=== PATIENT | male | born 1995 | race Caucasian/White ===

== ENCOUNTER 2019-03-22 16:15 | Outpatient (RCR) | payer OTHER, BC, SELFPAY ==
--- NOTE | 2019-01-31 10:39 | PTOPEVAL ---
PHYSICAL THERAPY PLAN OF CARE UPDATE AND PROGRESS REPORT Thank you for referring this patient to [facility]. Dio will be scheduled for PT for 2x/week for 4 weeks. Please review, sign, date and return this plan of care PRASANTH. I agree with and certify that the following plan of care is medically necessary. Referring Physician Date Attending Provider: Raya Rhoades MD Re-evaluation Evaluation Information Problem Diagnosis right ACL reconstruction Onset 12/21/18 Subjective Information Dio is 6 weeks s/p right ACL Query Text:As Reported By Patient/ reconstruction. He has no Family pain reported at this time. He recognizes that the leg is still weak, but overall feels good. Pain Assessment Self Report Pain Level 0 Knee Range of Motion Right Knee Flexion Range of Motion - Active 130 Knee Extension Range of Motion - Active -1 Hip Strength Right Hip Flexion Strength 5 Normal Hip Extension Strength 4+ Good + Hip Abduction Strength 4+ Good + Knee Strength Right Knee Flexion Strength 4+ Good + Knee Extension Strength 4 Good Muscle Length Testing Left Hamstring Length -40 Right Hamstring Length -40 Extremity Circumference Assessment Circumference Assessment Right Knee Site Descriptor ([place]) suprapatellar Circumference (cm) 39 Circumference Comments left = 38.5cm Trendelenburg Gait Gait Pattern Observed Trunk Lateral Lean - Right Other Gait Observations very mild Trendelenburg to the right when right LE in stance phase Clinical Summary Dio is a 23 yo male 6 weeks s/p right ACL reconstruction. He is progressing very well through protocol. He ambulates without assistive device with only mild gait deviation. He performs strong quadriceps contraction and is able to control quadriceps during straight leg raise. We are working on right LE closed chain exercises with gradually increased resistance. He would benefit from further skilled PT to progress the rest of the way through protocol and to promote
--- NOTE | 2019-02-07 08:18 | PCPTNOTE ---
Patient called & cancelled scheduled appointment this date unable to make it.
--- NOTE | 2019-03-22 17:03 | PTOPEVAL ---
Addendum entered by Bhavana Norman, PT 03/27/19 10:05: Patient will not be discharged per physician request. He will continue with therapy 0-1x/week for 6 weeks. Original Note: PHYSICAL THERAPY PLAN OF CARE UPDATE AND PROGRESS REPORT/ DISCHARGE REPORT Thank you for referring this patient to [facility]. I recommend discharge from skilled PT at this time with progression to regular exercise routine. Patient is understanding and agreeable. Please review, sign, date and return this plan of care PRASANHT. I agree with and certify that the following plan of care is medically necessary. Referring Physician Date Admitting Provider: Attending Provider: Raya Rhoades MD Referring Provider: *PT Outpatient Evaluation Start: 01/08/19 14:49 Freq: Status: Active Protocol: Document 03/22/19 16:56 [facility] (Rec: 03/22/19 17:03 [facility] [id number]) Therapy Assessment Status Assessment Status Assessment Status Re-evaluation Evaluation Information Problem Diagnosis right ACL reconstruction Onset 12/21/18 Subjective Information Dio is 14 weeks s/p right Query Text:As Reported By Patient/ ACL reconstruction. He has no Family pain reported at this time. He returned to work on light duty 2 weeks ago and only noted that the right leg would fatigue during work. Self Report Self Report Pain Level 0 Pain Score Pain Score 0: Self Report Knee Range of Motion Right Knee Flexion Range of Motion - Active 130 Knee Extension Range of Motion - Active 0 Query Text: Hip Strength Right Hip Flexion Strength 5 Normal Hip Extension Strength 4+ Good + Hip Abduction Strength 5 Normal Knee Strength Right Knee Flexion Strength 5 Normal Knee Extension Strength 5 Normal Clinical Summary Dio a 23 yo male 14 weeks s/p right ACL reconstruction. He is progressing very well through protocol. He has normal gait pattern and running pattern. All jumping activities, single or double leg, are performed with appropriate femoral posturing and there is no apparent instability. Able to perform 1 minute wall side, squat jumps to 18 height [id number] x2 without fatigue of LE; Able to perform functional squat with appropriate posturing. The right quadriceps, while measuring 5/5 strength to MMT, continues to be atrophied with less muscle bulking compared to the left. Dio was educated on the deficit and was educated on how to continue to make progress toward improving muscle size. He is competent and capable in full understanding of exercises and appropriate form. At this time, I do recommend discharge from skilled PT to progress to a regular exercise routine with focus of increasing right quadriceps muscle bulking. PT Services Indicated No Patient/Caregiver Informed of Benefits/ Yes Risks of Rehabilitation Patient/Caregiver Participated in Plan Yes of Care
--- NOTE | 2019-04-10 15:15 | PCPTNOTE ---
This treatment is being continued on visit number [id number]. Please see documentation on both accounts to view progress. Completed interventions, outcomes, and problems have been marked as Inactive to facilitate the copying of the Care plan routine for recurring accounts.
== END 2019-03-22 23:59 | disposition home or self-care (01) ==
LOC: ANHPT 16:15
PROVIDERS: PCP Family Medicine; Visit Provider Family Medicine
DX: S83.511D Sprain of anterior cruciate ligament of right knee, subsequent encounter (principal)
CPT/HCPCS: 97110; 97112

== ENCOUNTER 2019-04-25 17:00 | Outpatient (RCR) | payer BC, SELFPAY ==
--- NOTE | 2019-04-10 15:14 | PCPTNOTE ---
The treatment documented on this account is a continuation of the treatment documented on visit number [id number]. Please see documentation on both accounts to view progress. The Plan of Care has been transitioned and updated within the new V#. I have addressed and agree with the discipline specific Problems, Interventions, and Goals for the current certification period. Completed interventions, outcomes, and problems have been marked as Inactive to facilitate the copying of the Care plan routine for recurring accounts.
--- NOTE | 2019-04-11 14:58 | PCPTNOTE ---
Patient called & cancelled scheduled appointment this date due to conflicting events. Something came up
--- NOTE | 2019-04-16 12:46 | PCPTNOTE ---
To Whom it May Concern: Dio Musa (1995) has been participating in physical therapy for rehabilitation following right ACL reconstructive surgery. At this time he has no restrictions or limitations to activity. He is released to safely perform all tasks required of him in community, home, and work. Thank you, Bhavana Gregorio, PT, DPT
--- NOTE | 2019-05-07 16:00 | PCPTNOTE ---
PHYSICAL THERAPY DISCHARGE REPORT Patient:Dio Musa Date of :1995 Dio Musa has participated in physical therapy for 12 weeks s/p right ACL reconstruction. 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 I recommend complete discharge from PT at this time. His goals for his plan of care have been achieved. Thank you for referring this patient to [facility]. Please review, sign, date and return this discharge summary PRASANTH. I have been updated about the patient's current status and I agree with discharge from the above service at this time. Referring Physician Date
== END 2019-05-08 08:27 | disposition home or self-care (01) ==
LOC: ANHPT 17:00
PROVIDERS: PCP Family Medicine
DX: S83.511D Sprain of anterior cruciate ligament of right knee, subsequent encounter (principal)
CPT/HCPCS: 99199; 97110; 97140

== ENCOUNTER 2020-08-19 16:24 | Emergency (ER) | payer OTHER, SELFPAY ==
--- NOTE | 2020-08-19 16:35 | ED.ABDPAIN ---
HPI - Abdominal Pain General Chief Complaint: Abdominal Pain Stated Complaint: Abdominal pain,headache,nausea Time Seen by Provider: 08/19/20 16:41 Source: patient and RN notes reviewed Mode of arrival: ambulatory Limitations: no limitations History of Present Illness HPI narrative: 24 year old male presents with concern for diarrhea, nausea, abdominal pain yesterday. He denies current abdominal pain. Reports symptoms started with nausea without vomiting while he was overheated at work. Reports he went home and had 3 diarrhea stools, epigastric abdominal pain, nausea, no vomiting. He denies fevers, reports chills. Reports waking up with sweats today. He reports 2 diarrhea stools today. Denies taking any medications for his symptoms. Denies any known sick contacts. MD elicited complaint: abdominal pain Related Data Allergies Allergy/AdvReac Type Severity Reaction Status Date / Time pseudoephedrine Allergy Mild Hives / Verified 10/03/19 16:12 Red Face chlorpheniramine Allergy Unknown Unknown Verified 10/03/19 16:12 [Ed A-Hist DM] dextromethorphan Allergy Unknown Unknown Verified 10/03/19 16:12 [Ed A-Hist DM] phenylephrine [Ed A-Hist DM] Allergy Unknown Unknown Verified 10/03/19 16:12 triprolidine [Aprodine] Allergy Unknown Unknown Verified 10/03/19 16:12 Review of Systems Review of Systems: Narrative: CONSTITUTIONAL: Denies malaise, chills, sweats, or fever. ENT: Denies rhinorrhea, congestion, sinus pain, otalgia or sore throat. CARDIOVASCULAR: Denies chest pain, palpitations, or edema. RESPIRATORY: Denies cough or dyspnea. GASTROINTESTINAL: Denies abdominal pain yesterday, denies current abdominal pain. Reports nausea, diarrhea. Denies vomiting, bloody, or mucous stools. GENITOURINARY: Denies dysuria or hematuria. MUSCULOSKELETAL: Denies myalgia. NEUROLOGIC: Reports headache. All systems reviewed & are unremarkable except as noted in HPI and below PMFSH Social History Social History Smoking status: Never smoker Gender identity (if verbalized by the patient): Male Comments At time of signature, agree with nursing past medical, surgical, social and family history. There is no relevant family history pertinent to the presenting complaint Exam Narrative: Exam Narrative: GENERAL: Well-appearing, well-nourished, and in no acute distress. HEAD: Normocephalic, atraumatic. EYES: PERRLA, conjunctivae clear, and EOMI. ENT: Nares clear, turbinates pink, no rhinorrhea or epistaxis. Mucous membranes moist. Oropharynx without edema, erythema, or lesions. Tonsils not enlarged and without exudate. NECK: Supple. No lymphadenopathy CHEST: Speaks in full sentences. No respiratory distress. HEART: Regular rate and rhythm. ABDOMEN: Soft, flat, nondistended. No guarding, rebound tenderness, or rigid. No pulsatilla masses. Bowel sounds present in all four quadrants. No organomegaly. Negative Roblero?s sign. No periumbilical tenderness. No Supra public tenderness or distension. Good femoral pulses bilaterally. No hernia noted. No scars or surface trauma. SKIN: Warm, dry, no rash. NEURO: Alert and oriented x3. PSYCH: Normal mood and affect Course Course Emergency Course: Patient is aware of diagnosis, understands and agrees to treatment plan. Anticipatory guidance given. Patient agrees to follow-up as directed and is aware of reasons to seek care at the emergency department. Portions of this record may have been created with voice recognition software Vital Signs Vital signs: Vital Signs Temperature 97.2 F L 08/19/20 16:42 Pulse Rate 51 L 08/19/20 16:42 Respiratory Rate 16 08/19/20 16:42 Blood Pressure 127/68 08/19/20 16:42 Pulse Oximetry 100 08/19/20 16:42 Temperature 97.2 F L 08/19/20 16:42 Pulse Rate 51 L 08/19/20 16:42 Respiratory Rate 16 08/19/20 16:42 Blood Pressure 127/68 08/19/20 16:42 Pulse Oximetry 100 08/19/20 16:42
[2020-08-19 16:42] VITALS: BP 127/68; PULSE 51; RESP 16; TEMP 36.2; O2SAT 100
== END 2020-08-19 16:53 | disposition home or self-care (01) ==
PROVIDERS: Emergency Provider Nurse Practitioner
DX: R19.7 Diarrhea, unspecified (principal)
CPT/HCPCS: 99213; G0463

== ENCOUNTER 2020-10-22 16:10 | Emergency (ER) | payer OTHER, SELFPAY ==
[2020-10-22 16:20] VITALS: BP 130/75; PULSE 78; RESP 16; TEMP 36.7; O2SAT 100
--- NOTE | 2020-10-22 16:26 | ED.URI ---
HPI - URI/Sore Throat General Chief Complaint: Upper Respiratory Infection Stated Complaint: sore throat Source: patient and RN notes reviewed Mode of arrival: ambulatory History of Present Illness HPI Narrative: This is a 24-year-old male for that presented to urgent care with complaints of congestion, fever, chills, sore throat and dry cough since Tuesday. According to patient he took [id number] Tylenol for his temperature. Patient is requesting Covid test which was negative and a strep test was also negative. The patient denies SOB, CP, palpitation, extremity numbness, lightheadedness, dizziness, constipation, and diarrhea. MD elicited complaint: fever, cough, sore throat and nasal congestion Related Data Allergies Allergy/AdvReac Type Severity Reaction Status Date / Time chlorpheniramine Allergy Mild Hives Verified 10/22/20 16:17 [Ed A-Hist DM] dextromethorphan Allergy Mild Hives Verified 10/22/20 16:17 [Ed A-Hist DM] phenylephrine [Ed A-Hist DM] Allergy Mild Hives Verified 10/22/20 16:17 pseudoephedrine Allergy Mild Hives / Verified 10/22/20 16:17 Red Face triprolidine [Aprodine] Allergy Mild Hives Verified 10/22/20 16:17 Review of Systems Review of Systems: A 14 organ system Review of Systems was performed and pertinent positives included in the HPI, otherwise remaining ROS is negative. [facility] Family History Family History (Updated 10/22/20 @ 16:26 by DEDE RiggsC) Other Family history non-contributory Social History Social History Smoking status: Never smoker Gender identity (if verbalized by the patient): Male Exam Narrative: GENERAL: This is a well-nourished, well-developed patient, in no apparent distress. HEAD: normocephalic, atraumatic. EYES: PERRL. Sclera clear/white. Vision is grossly intact. EARS: External ears normal, auditory canals clear and without drainage, TMs normal without perforation. Hearing grossly intact. NOSE: External nose normal with no obvious nasal discharge, nares without redness, no rhinorrhea. THROAT: Mucous membranes moist, posterior pharynx edematous with edema NECK: Neck supple, non-tender without lymphadenopathy, masses or thyromegaly. CARDIOVASCULAR: Regular rate and rhythm without murmurs, gallops, or rubs. RESPIRATORY: Clear to auscultation. Breath sounds equal bilaterally. No wheezes, rales, or rhonchi. GASTROINTESTINAL: Abdomen soft, non-tender, nondistended. Bowel sounds are active. No hepato-splenomegaly, or palpable masses. No guarding. SKIN: warm, intact with no suspicious lesions or rash, good texture and turgor. NEURO: awake, alert, and oriented to person, place and time. There were no obvious focal neurologic abnormalities. Steady gait EXTREMITIES: Normal range of motion. No edema. No calf tenderness. Negative Homans sign bilaterally. BACK: Nontender without deformity or crepitance. No flank tenderness. Course Vital Signs Vital signs: Vital Signs Temperature 98.0 F 10/22/20 16:20 Pulse Rate 78 10/22/20 16:20 Respiratory Rate 16 10/22/20 16:20 Blood Pressure 130/75 10/22/20 16:20 Pulse Oximetry 100 10/22/20 16:20 Temperature 98.0 F 10/22/20 16:20 Pulse Rate 78 10/22/20 16:20 Respiratory Rate 16 10/22/20 16:20 Blood Pressure 130/75 10/22/20 16:20 Pulse Oximetry 100 10/22/20 16:20 MDM - URI/Sore Throat MDM Narrative Medical decision making narrative: Patient will discharge home with a Z-Madhu Tessalon Perles and Mucomyst Differential Diagnosis Differential diagnosis: Likely upper respiratory infection, sinusitis, viral infection and pharyngitis Lab Data Attestation: I reviewed the patient's lab results. Labs: Lab Results 10/22/20 Range/Units 16:20 POC SARS CoV-2 Ag Negative (Negative) Strep Screen Presumptive Negative *(Reference Range: Negative)* Discharge Plan
[2020-10-23 17:13] LABS: SARS-CoV-2 RNA PCR Negative
== END 2020-10-22 16:43 | disposition home or self-care (01) ==
PROVIDERS: Emergency Provider Nurse Practitioner; PCP Family Medicine
DX: J02.9 Acute pharyngitis, unspecified (principal); Z20.822 Contact with and (suspected) exposure to COVID-19
CPT/HCPCS: 87081; 87426; 87880; 99213; C9803; G0463; U0003; U0005

== ENCOUNTER 2022-02-16 15:26 | Emergency (ER) | payer OTHER, SELFPAY ==
[2022-02-16 15:30] VITALS: BP 143/80; PULSE 82; RESP 16; TEMP 36.7; O2SAT 99
--- NOTE | 2022-02-16 15:32 | ED.URI ---
HPI - URI/Sore Throat General Chief Complaint: Upper Respiratory Infection Stated Complaint: CONGESTION/HEADACHE/NAUSEA/CHILLS Time Seen by Provider: 02/16/22 15:32 Source: patient and RN notes reviewed History of Present Illness HPI Narrative: Patient is a 26-year-old male who presents to urgent care with complaints of congestion, headache, nausea, chills and fatigue. Patient states that started late on Tuesday. Patient denies any known ill exposures. States that he has been taking [place]. No other acute complaints. No acute distress noted. Patient aware of the plan of care. Some parts of this dictation were generated by voice recognition software and may contain typographical and/or grammatical inaccuracies. Related Data Allergies Allergy/AdvReac Type Severity Reaction Status Date / Time chlorpheniramine Allergy Mild Hives Verified 02/16/22 15:35 [Ed A-Hist DM] dextromethorphan Allergy Mild Hives Verified 02/16/22 15:35 [Ed A-Hist DM] phenylephrine [Ed A-Hist DM] Allergy Mild Hives Verified 02/16/22 15:35 pseudoephedrine Allergy Mild Hives / Verified 02/16/22 15:35 Red Face triprolidine [Aprodine] Allergy Mild Hives Verified 02/16/22 15:35 Review of Systems Review of Systems: CONSTITUTIONAL: Reports of chills EYES: Denies visual changes, redness, or discharge. ENT: Denies rhinorrhea, congestion, sore throat, or otalgia. CARDIOVASCULAR: Denies chest pain, palpitations, or edema. RESPIRATORY: Denies cough or dyspnea. GASTROINTESTINAL: Reports of nausea without vomiting or abdominal pain GENITOURINARY: Denies dysuria or hematuria. SKIN: Denies rash or itching. MUSCULOSKELETAL: Denies back pain, joint pain. reports of body aches NEUROLOGIC: Reports of headache All other systems reviewed are negative, except as documented in HPI. [facility] Family History Family History (Updated 10/22/20 @ 16:26 by JANET Riggs) Other Family history non-contributory Social History Social History Smoking status: Never smoker Gender identity (if verbalized by the patient): Male Comments At the time of my signature, I reviewed and agree with the nursing past medical, surgical, social, and family history. There is no relevant family history pertinent to the patient complaint. Exam Narrative: GENERAL: This is a well-nourished, well-developed patient, in no apparent distress. HEAD: normocephalic, atraumatic. EYES: PERRL. Sclera clear/white. Vision is grossly intact. EARS: External ears normal, auditory canals clear and without drainage, TMs normal without perforation. Hearing grossly intact. NOSE: External nose normal with no obvious nasal discharge, nares without redness, clear to yellow rhinorrhea. THROAT: Mucous membranes moist, mild erythema to posterior pharynx with moderate postnasal drainage NECK: Neck supple, non-tender without lymphadenopathy CARDIOVASCULAR: Regular rate and rhythm without murmurs, gallops, or rubs. RESPIRATORY: Clear to auscultation. Breath sounds equal bilaterally. No wheezes, rales, or rhonchi. GASTROINTESTINAL: Abdomen soft, non-tender, nondistended. SKIN: warm, intact with no suspicious lesions or rash, good texture and turgor. NEURO: awake, alert, and oriented to person, place and time. There were no obvious focal neurologic abnormalities. EXTREMITIES: No clubbing, cyanosis, or edema. Course Course Level of Care: Express Care Visit Vital Signs Vital signs: Vital Signs Temperature 98.1 F 02/16/22 15:30 Pulse Rate 82 02/16/22 15:30 Respiratory Rate 16 02/16/22 15:30 Blood Pressure 143/80 H 02/16/22 15:30 Pulse Oximetry 99 02/16/22 15:30 Oxygen Delivery Room Air 02/16/22 15:30 Temperature 98.1 F 02/16/22 15:30 Pulse Rate 82 02/16/22 15:30 Respiratory Rate 16 02/16/22 15:30 Blood Pressure 143/80 H 02/16/22 15:30 Pulse Oximetry 99 02/16/22 15:30 Oxygen Delivery Room Air 02/16
== END 2022-02-16 16:00 | disposition home or self-care (01) ==
PROVIDERS: Emergency Provider Nurse Practitioner Family
DX: J06.9 Acute upper respiratory infection, unspecified (principal)
CPT/HCPCS: 87804; 99213; G0463

== ENCOUNTER 2023-01-07 16:02 | Emergency (ER) | payer OTHER, SELFPAY ==
[2023-01-07 16:14] VITALS: BP 149/80; PULSE 82; RESP 16; TEMP 36.9; O2SAT 100
--- NOTE | 2023-01-07 17:00 | ED.EYEPROB ---
HPI - Eye Problem General Chief complaint: Eye Problems Stated complaint: Eye pain Source: patient Mode of arrival: ambulatory Limitations: no limitations History of Present Illness HPI Narrative: 27-year-old male presented for complaint of right eye irritation over the past 2 days. States that the onset he thought he saw a black speck in the right eye. He irrigated the eye with saline last night. Continued to feel like something was in the lower part of the eye. Denies significant pain, discharge, itching, vision changes, or photophobia. MD chief complaint: eye pain Related Data Allergies Allergy/AdvReac Type Severity Reaction Status Date / Time chlorpheniramine Allergy Mild Hives Verified 01/07/23 16:09 [Ed A-Hist DM] dextromethorphan Allergy Mild Hives Verified 01/07/23 16:09 [Ed A-Hist DM] phenylephrine [Ed A-Hist DM] Allergy Mild Hives Verified 01/07/23 16:09 pseudoephedrine Allergy Mild Hives / Verified 01/07/23 16:09 Red Face triprolidine [Aprodine] Allergy Mild Hives Verified 01/07/23 16:09 Review of Systems Review of Systems: CONSTITUTIONAL: Denies body aches, fever, chills EYES:Endorses redness and pain to right eye; FB sensation, denies photophobia or visual changes ENT: Denies rhinorrhea, congestion, sore throat, or otalgia. CARDIOVASCULAR: Denies chest pain, palpitations RESPIRATORY: Denies cough or dyspnea. GASTROINTESTINAL: Denies abdominal pain, nausea, vomiting, or diarrhea. SKIN: Denies rash, itching, or wounds. MUSCULOSKELETAL: Denies back pain, joint pain, or myalgia. NEUROLOGIC: Denies headache, numbness, tingling, or weakness. All systems reviewed & are unremarkable except as noted in HPI and below PMFSH Past Medical History Medical History (Updated 01/07/23 @ 17:17 by Traci Mccullough APRN) No pertinent past medical history Family History Family History Other Family history non-contributory Social History Social History Smoking status: Never smoker Gender identity (if verbalized by the patient): Male Comments At time of signature, I have reviewed and agree with nursing past medical, surgical, social and family history unless otherwise noted. Please see nursing chart for further information. There is no relevant family history pertinent to the presenting complaint Exam Narrative: GENERAL: Well-appearing HEAD: Normocephalic, atraumatic. EYES: mild right conjunctival injection, no drainage or eye lid swelling. PERRLA, EOMI. Lid eversion shows no FB. No corneal abrasion on Young lamp exam. ENT: Mucous membranes pink and moist. No rhinorrhea. TMs normal bilaterally. Throat normal. Uvula midline. CHEST: Clear to auscultation. HEART: Regular rate and rhythm. ABDOMEN: Soft, nontender, nondistended SKIN: Warm, dry, no rash. Normal skin turgor. NEURO: No focal deficits. Alert and oriented x3 PSYCH: Normal affect. Course Course Emergency Course: Patient is aware of diagnosis, understands and agrees to treatment plan. Anticipatory guidance given. Patient agrees to follow-up as directed and is aware of reasons to seek care at the emergency department. Portions of this record may have been created with voice recognition software Level of Care: Express Care Visit Vital Signs Vital signs: Vital Signs Temperature 98.5 F 01/07/23 16:14 Pulse Rate 82 01/07/23 16:14 Respiratory Rate 16 01/07/23 16:14 Blood Pressure 149/80 H 01/07/23 16:14 Pulse Oximetry 100 01/07/23 16:14 Temperature 98.5 F 01/07/23 16:14 Pulse Rate 82 01/07/23 16:14 Respiratory Rate 16 01/07/23 16:14 Blood Pressure 149/80 H 01/07/23 16:14 Pulse Oximetry 100 01/07/23 16:14 Procedures FB Removal Eye Foreign Body #1: Foreign Body Removal Date: 01/07/23 Location: eye (R) Topical anesthetic used: tetracaine
== END 2023-01-07 17:17 | disposition home or self-care (01) ==
PROVIDERS: Emergency Provider Nurse Practitioner Family; PCP Family Medicine
DX: H57.11 Ocular pain, right eye (principal)
CPT/HCPCS: 99213; A9270; G0463

== ENCOUNTER 2023-04-06 13:38 | Emergency (ER) | payer OTHER, SELFPAY ==
--- NOTE | 2023-04-06 13:48 | ED.URI ---
HPI - URI/Sore Throat General Chief Complaint: Upper Respiratory Infection Stated Complaint: SORE THROAT/FEVER/CHILLS/COUGH Time Seen by Provider: 04/06/23 13:48 Source: patient Mode of arrival: ambulatory Limitations: no limitations History of Present Illness HPI Narrative: 27-year-old male presents with complaint nasal congestion, cough, sore throat for 3 days. Last known fever last night. Taking [id number] medications to treat symptoms. Reports throat very painful. All systems reviewed and negative except as noted above. Related Data Allergies Allergy/AdvReac Type Severity Reaction Status Date / Time chlorpheniramine Allergy Mild Hives Verified 04/06/23 13:46 [Ed A-Hist DM] dextromethorphan Allergy Mild Hives Verified 04/06/23 13:46 [Ed A-Hist DM] phenylephrine [Ed A-Hist DM] Allergy Mild Hives Verified 04/06/23 13:46 pseudoephedrine Allergy Mild Hives / Verified 04/06/23 13:46 Red Face triprolidine [Aprodine] Allergy Mild Hives Verified 04/06/23 13:46 Review of Systems Review of Systems: CONSTITUTIONAL: Reports fever, chills, or sweats. EYES: Denies visual changes, redness, or discharge. ENT: Reports rhinorrhea, congestion, sore throat. Denies otalgia. CARDIOVASCULAR: Denies chest pain, palpitations, or edema. RESPIRATORY: Reports cough. Denies dyspnea. GASTROINTESTINAL: Denies abdominal pain, nausea, vomiting, or diarrhea. GENITOURINARY: Denies dysuria or hematuria. SKIN: Denies rash or itching. MUSCULOSKELETAL: Denies back pain, joint pain, or myalgia. NEUROLOGIC: Denies headache, numbness, or weakness. PSYCHIATRIC: Denies anxiety or depression. All other systems reviewed are negative, except as documented in HPI. COUNTS INCLUDE 234 BEDS AT THE [facility] Past Medical History Medical History (Updated 04/06/23 @ 14:08 by Licha Abel NP) No pertinent past medical history Family History Family History Other Family history non-contributory Social History Social History Smoking status: Never smoker Gender identity (if verbalized by the patient): Male Comments At time of signature, agree with nursing past medical, surgical, social and family history. There is no relevant family history pertinent to the presenting complaint. Exam Narrative: GENERAL: This is a well-nourished, well-developed patient, in no apparent distress. HEAD: normocephalic, atraumatic. EYES: PERRL. Sclera clear/white. Vision is grossly intact. EARS: External ears normal, auditory canals clear and without drainage, TMs normal without perforation. Hearing grossly intact. NOSE: External nose normal clear nasal drainage, moderate nasal congestion. THROAT: Mucous membranes moist, erythema, exudates, tonsils 1+ bilaterally. NECK: Neck supple, non-tender without lymphadenopathy, masses or thyromegaly. CARDIOVASCULAR: Regular rate and rhythm without murmurs, gallops, or rubs. RESPIRATORY: Clear to auscultation. Breath sounds equal bilaterally. No wheezes, rales, or rhonchi. SKIN: warm, Dry, intact with no suspicious lesions or rash, good texture and turgor. NEURO: awake, alert, and oriented to person, place and time. There were no obvious focal neurologic abnormalities. EXTREMITIES: No joint tenderness, effusion, or edema noted. Course Course Level of Care: Express Care Visit Vital Signs Vital signs: Reviewed MDM - URI/Sore Throat MDM Narrative Medical decision making narrative: Negative COVID, influenza and strep. Will treat patient with antibiotics due to exam findings. Patient is aware of diagnosis, understands and agrees to treatment plan. Anticipatory guidance given. Patient agrees to follow-up as directed and is aware of reasons to seek care at the emergency department. Portions of this record may have been created with voice recognition software Differential Diagnosis Differential diagnosis: Likely pharyn
[2023-04-06 13:52] VITALS: BP 124/79; PULSE 104; RESP 16; TEMP 37.3; O2SAT 100
[2023-04-06 13:59] VITALS: BP 124/79; PULSE 104; RESP 16; TEMP 37.3; O2SAT 100
== END 2023-04-06 14:12 | disposition home or self-care (01) ==
PROVIDERS: Emergency Provider Nurse Practitioner Family; PCP Family Medicine
DX: J02.8 Acute pharyngitis due to other specified organisms (principal); Z20.822 Contact with and (suspected) exposure to COVID-19
CPT/HCPCS: 87081; 87426; 87804; 87880; 99213; G0463

== ENCOUNTER 2023-07-06 08:51 | Emergency (ER) | payer OTHER, SELFPAY ==
[2023-07-06 08:55] VITALS: BP 141/81; PULSE 89; RESP 16; TEMP 36.2; O2SAT 100
--- NOTE | 2023-07-06 09:30 | ED.SKABFB ---
HPI - Skin/Abscess/Foreign Bdy General Chief complaint: Skin/Abscess/Foreign Body Stated complaint: TICK BITE Time Seen by Provider: 07/06/23 09:23 Source: patient and RN notes reviewed Mode of arrival: ambulatory Limitations: no limitations History of Present Illness HPI narrative: Patient presents today with a possible tick bite to his right hand. States he has a bull's-eye rash and is concerned for Lyme disease. He was in the [place] yesterday and 3 days prior. The he did not see a tick on his hand. He did not remove a tick from his hand. He denies any symptoms to include fever, sweats or chills, body aches, abdominal pain, nausea vomiting. Related Data Home Medications Medication Instructions Recorded Confirmed No Home Medications 04/20/23 07/06/23 Allergies Allergy/AdvReac Type Severity Reaction Status Date / Time chlorpheniramine Allergy Mild Hives Verified 07/06/23 09:09 [Ed A-Hist DM] dextromethorphan Allergy Mild Hives Verified 07/06/23 09:09 [Ed A-Hist DM] phenylephrine [Ed A-Hist DM] Allergy Mild Hives Verified 07/06/23 09:09 pseudoephedrine Allergy Mild Hives / Verified 07/06/23 09:09 Red Face triprolidine [Aprodine] Allergy Mild Hives Verified 07/06/23 09:09 Review of Systems Review of Systems: CONSTITUTIONAL: Denies body aches, fever, chills, or sweats. EYES: Denies visual changes, redness, or discharge. ENT: Denies rhinorrhea, congestion, sore throat, or otalgia. CARDIOVASCULAR: Denies chest pain, palpitations, or edema. RESPIRATORY: Denies cough or dyspnea. GASTROINTESTINAL: Denies abdominal pain, nausea, vomiting, or diarrhea. GENITOURINARY: Denies dysuria or hematuria. SKIN: Denies rash, itching, or wounds.+ insect bite to right hand MUSCULOSKELETAL: Denies back pain, joint pain, or myalgia. NEUROLOGIC: Denies headache, numbness, tingling, or weakness. PSYCH: Denies depression or anxiety. [facility] Past Medical History Medical History No pertinent past medical history Family History Family History Other Family history non-contributory Social History Social History Smoking status: Never smoker Gender identity (if verbalized by the patient): Male Comments At time of signature, I have reviewed and agree with nursing past medical, surgical, social and family history unless otherwise noted. Please see nursing chart for further information. There is no relevant family history pertinent to the presenting complaint Exam Narrative: GENERAL: Well-appearing, well-nourished, and in no acute distress. HEAD: Normocephalic, atraumatic. EYES: EOMI. No redness or drainage. Conjunctivae normal. ENT: Mucous membranes pink and moist. NECK: Normal AROM. CHEST: No respiratory distress. EXTREMITIES: Right hand: Small insect bite, approximately 4 mm round, erythematous, and slightly raised. There is a small erythematous ring around this lesion. No necrotic center. Nontender. No induration or fluctuance noted. SKIN: Warm, dry, no rash. Capillary refill normal. Normal skin turgor. NEURO: No focal deficits. Alert and oriented x3. Gait steady. PSYCH: Normal affect. No signs of depression or anxiety. Course Course Level of Care: Express Care Visit Vital Signs Vital signs: Vital Signs Temperature 97.2 F L 07/06/23 08:55 Pulse Rate 89 07/06/23 08:55 Respiratory Rate 16 07/06/23 08:55 Blood Pressure 141/81 H 07/06/23 08:55 Pulse Oximetry 100 07/06/23 08:55 Temperature 97.2 F L 07/06/23 08:55 Pulse Rate 89 07/06/23 08:55 Respiratory Rate 16 07/06/23 08:55 Blood Pressure 141/81 H 07/06/23 08:55 Pulse Oximetry 100 07/06/23 08:55 Reviewed MDM - Skin/Abscess/Foreign Bdy MDM Narrative Medical decision making narrative: As patient did not see a tick
== END 2023-07-06 09:40 | disposition home or self-care (01) ==
PROVIDERS: Emergency Provider Nurse Practitioner
DX: S60.561A Insect bite (nonvenomous) of right hand, initial encounter (principal); W57.XXXA Bitten or stung by nonvenomous insect and other nonvenomous arthropods, initial encounter
CPT/HCPCS: 99211; G0463

== ENCOUNTER 2024-03-01 12:38 | Emergency (ER) | payer OTHER, SELFPAY ==
--- NOTE | 2024-03-01 13:06 | ED_ITS ---
HPI - URI/Sore Throat General Chief Complaint: Nausea/Vomiting/Diarrhea Stated Complaint: Flu Symptoms Time Seen by Provider: 03/01/24 13:30 Source: patient Mode of arrival: ambulatory Limitations: no limitations History of Present Illness HPI Narrative: Dio is a 28-year-old male patient presenting to the clinic today with flu-like symptoms. He reports he has been feeling feverish, chills, body aches, nausea, and diarrhea for the past 2 days. Has felt feverish but has not checked his temperature. Denies any chest pain or shortness of breath. Really denies any URI symptoms Related Data Allergies Allergy/AdvReac Type Severity Reaction Status Date / Time chlorpheniramine (Ed A-Hist Allergy Mild Hives Verified 07/06/23 09:09 DM) dextromethorphan (Ed A-Hist Allergy Mild Hives Verified 07/06/23 09:09 DM) phenylephrine (Ed A-Hist DM) Allergy Mild Hives Verified 07/06/23 09:09 pseudoephedrine Allergy Mild Hives / Verified 07/06/23 09:09 Red Face triprolidine (Aprodine) Allergy Mild Hives Verified 07/06/23 09:09 Review of Systems Review of Systems: Pertinent positives per HPI. Patient denies any rash, headache, visual changes, dizziness, cough, runny nose, sore throat, shortness of breath, chest pain, palpitations, constipation, abdominal pain, or any urinary issues. PMFSH Past Medical History Medical History No pertinent past medical history Family History Family History Other Family history non-contributory Social History Social History Smoking status: Never smoker Gender identity (if verbalized by the patient): Male Comments At the time of my signature, I reviewed and agree with the nursing past medical, surgical, social, and family history. There is no relevant family history pertinent to the patient complaint. Exam Narrative: General: Well-developed, well nourished, in no apparent distress Head: Normocephalic, atraumatic Eyes: Pupils equally round and reactive to light bilaterally, EOM intact, sclera and conjunctive clear, no discharge, lids normal Ears: TMs intact and clear, ear canals clear, no drainage, grossly hearing normal. Nose: Nares patent, no discharge, no inflammation, no sinus tenderness. Mouth: Oropharynx without lesions or masses, good dentition, MMM. Neck: Supple, trachea midline, no enlargement of anterior or posterior cervical nodes, no thyroid masses or goiter palpable. Cardio: Regular rate and rhythm, s1 and s2 normal, no murmur appreciated. Resp: Clear to auscultation bilaterally anteriorly and posteriorly, no rhonchi, rales, wheezing or rubs Abdomen: Soft, pliable, bowel sounds present in all quadrants, non-tender to palpation, no organomegly, no CVAT tenderness. Course Course Emergency Course: Portions of this record may have been created with voice recognition software. Level of Care: Express Care Visit Vital Signs Vital signs: Vital signs reviewed MDM - URI/Sore Throat MDM Narrative Medical decision making narrative: At the time of visit patient is resting comfortably on the exam table. Patient appears to be nontoxic. Labs: COVID and influenza testing was negative in the clinic today. Plan: I suspect patient has viral syndrome/gastroenteritis. Prescription for Zofran was sent to the pharmacy. Supportive measures were discussed with the patient and they voiced understanding discharge instructions and agrees to treatment plan. Return precautions reviewed Differential Diagnosis Differential diagnosis: Likely upper respiratory infection, otitis media, sinusitis, viral infection, bronchitis, influenza and pharyngitis Discharge Plan Discharge Clinical Impression: Acute viral syndrome, Gastroenteritis Patient Disposition: Home, Self-Care Condition: Stable Instructions: Antibiotic Form, Gastroenteritis (ED), Acute Nausea and Vomiting (ED), Viral Syndrome (ED) Additional Instructions: COVID and influenza testing was negative in the clinic today. May take Imodium as needed for diarrhea as long as there is no blood in your stool Take prescription medications only as prescribed-ondansetron for nausea Increase fluids and stay well hydrated Tylenol/motrin for pain/fever Flonase and OTC antihistamines as directed Vicks vapor rub to open sinuses Sinus rinses for congestion Cepacol spray, cough drops, throat lozenges, warm tea with honey/lemon, gargle salt water to soothe throat BRAT diet for diarrhea Clear liquids x 24 hours then advance as tolerated for nausea/vomiting Go to the ED if you develop a worsening in your condition- high fever not controlled by Tylenol or Motrin, dehydration, weakness, lethargy, shortness of breath, or chest pain. Follow up with your PCP in 3-5 days if symptoms persist. Patient Language: Serbian Prescriptions: New ondansetron 4 mg tablet,disintegrating 4 mg PO Q6H PRN (Reason: nausea and vomiting) 3 Days Qty: 12 0RF Follow-up/Referrals: UNKNOWN,DOCTOR [Primary Care Provider] - Stand Alone Forms: Work/School Release IP Time of Disposition: 13:38 Quality NIHSS Nursing Documentation ED NIHSS nursing documentation: reviewed/agree
[2024-03-01 13:24] LABS: EDCOVIDSCREEN Negative (Negative); EDINFLUASCREEN Negative (Negative); EDINFLUBSCREEN Negative (Negative)
[2024-03-01 13:55] VITALS: BP 128/75; PULSE 72; RESP 16; TEMP 37.3; O2SAT 100
== END 2024-03-01 13:41 | disposition home or self-care (01) ==
PROVIDERS: Emergency Provider Nurse Practitioner Family
DX: B34.9 Viral infection, unspecified (principal); K52.9 Noninfective gastroenteritis and colitis, unspecified; Z20.822 Contact with and (suspected) exposure to COVID-19
CPT/HCPCS: 87426; 87804; 99213; G0463